=== PATIENT | male | born 1970 | race Caucasian/White ===

== ENCOUNTER 2023-10-23 13:55 | Emergency (ER) | payer BC, SELFPAY ==
[2023-10-23 14:11] VITALS: BP 157/97; PULSE 88; RESP 18; TEMP 36.6; O2SAT 98; BMI 29.5
[2023-10-23 14:58] LABS: Influenza Virus A Antigen Negative; Influenza Virus B Antigen Negative; Internal Control Within Normal Limits; SARS-CoV-2 Ag POSITIVE (NEGATIVE)
--- NOTE | 2023-10-23 15:58 | ED.URI1 ---
HPI - URI/Sore Throat General Chief Complaint: Upper Respiratory Infection Stated Complaint: URTI/FEVER Time Seen by Provider: 10/23/23 14:02 Source: patient Limitations: no limitations History of Present Illness HPI Narrative: Patient with 2 days of fatigue, sore throat, chills and muscle aches. His significant other had similar symptoms 2 days before him. He also had some GI symptoms, which are now gone. He was vaccinated for Covid and previously had an infection. Related Data Allergies Allergy/AdvReac Type Severity Reaction Status Date / Time No Known Drug Allergies Allergy Verified 10/23/23 14:16 [facility] Social History Smoking status: Current every day smoker Exam Narrative Exam Narrative: Nurses notes and vital signs reviewed and patient is not hypoxic. afebrile General: Well-appearing and in no apparent distress. Skin: Warm, dry, no pallor noted. No rash. Head: Normocephalic, atraumatic. Neck: Supple, non-tender. No cervical lymphadenopathy. Eye: Pupils are equal, round and EOMI. No scleral icterus. Ears, Nose, Mouth, and Throat: TM are clear, mild posterior oropharynx erythema and nasal mucosal hypertrophy, uvula is mid-line Oral mucosa is moist Cardiovascular: Regular Rate and Rhythm without murmur, gallop or rub. Respiratory: No accessory muscle use or respiratory distress. Lungs are clear to auscultation, no wheezing, rales or rhonchi Musculoskeletal: normal ROM Neurological: A&O x4. No cranial nerve dysfunction observed. No truncal ataxia. Moves all extremities. Sensation intact. Psychiatric: Cooperative and interactive. Normal mood and affect. Constitutional Vital Signs, click to edit/add: Last Vital Signs Temp 97.9 F 10/23/23 14:11 Pulse 88 10/23/23 14:11 Resp 18 10/23/23 14:11 BP 157/97 H 10/23/23 14:11 Pulse Ox 98 10/23/23 14:11 O2 Del Method Room Air 10/23/23 14:11 Course Vital Signs Vital signs: Vital Signs Temperature 97.9 F 10/23/23 14:11 Pulse Rate 88 10/23/23 14:11 Respiratory Rate 18 10/23/23 14:11 Blood Pressure 157/97 H 10/23/23 14:11 Pulse Oximetry 98 10/23/23 14:11 Oxygen Delivery Method Room Air 10/23/23 14:11 Temperature 97.9 F 10/23/23 14:11 Pulse Rate 88 10/23/23 14:11 Respiratory Rate 18 10/23/23 14:11 Blood Pressure 157/97 H 10/23/23 14:11 Pulse Oximetry 98 10/23/23 14:11 Oxygen Delivery Method Room Air 10/23/23 14:11 MDM - URI/Sore Throat MDM Narrative Medical decision making narrative: The patient tested positive for COVID. Patient advised to rest, stay at home, practice social distancing, take Motrin and Tylenol for pain and fever if not allergic, stay well hydrated with Gatorade or similar drinks if vomiting or eat as tolerated if not and take any meds as prescribed. Reviewed reasons to return including rapid increase in respiratory rate, shortness of breath, confusion, inability to keep down sips of swallowed liquids for more than 24 hours. Asked patient to encourage any ill contacts to stay home and practice similar advice. Lab Data Labs: Lab Results 10/23/23 Range/Units 14:20 Influenza Type A Ag Negative Influenza Type B Ag Negative SARS-CoV-2 Ag (CV2AG) Positive A (NEGATIVE) Discharge Plan Discharge Chief Complaint: Upper Respiratory Infection Clinical Impression: COVID Patient Disposition: Home, Self-Care Time of Disposition Decision: 15:57 Instructions: COVID-19 (Coronavirus Disease 2019) (ED) Stand Alone Forms: Portal Instructions Referrals: Physician,Non-Staff, [Primary Care Provider] - 1 week
== END 2023-10-23 16:05 | disposition home or self-care (01) ==
PROVIDERS: Physician Assistant; Emergency Provider Emergency Medicine
DX: U07.1 COVID-19 (principal); F17.210 Nicotine dependence, cigarettes, uncomplicated
CPT/HCPCS: 87804; 87811; 99283